=== PATIENT | female | born 1995 | race Hispanic/Latino ===

== ENCOUNTER 2016-10-28 23:38 | Emergency (ER) | payer MEDICAID, OTHER ==
[2016-10-29 00:02] VITALS: BMI 33.6
[2016-10-29 00:07] VITALS: BP 149/83; PULSE 106; RESP 16; TEMP 98; O2SAT 98
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
--- NOTE | 2016-10-29 08:46 | RAD ---
PROCEDURE: Right Wrist Radiographs. HISTORY: WRIST PAIN COMPARISON: None. FINDINGS: BONES: Normal. No fracture. JOINTS: Normal. No dislocation. SOFT TISSUES: Normal. OTHER FINDINGS: None. IMPRESSION: No evidence of acute fracture or dislocation.
== END 2016-10-29 01:43 | disposition home or self-care (01) ==
LOC: H.ER 23:38
DX: S69.91XA Unspecified injury of right wrist, hand and finger(s), initial encounter (principal); W22.8XXA Striking against or struck by other objects, initial encounter; Y93.89 Activity, other specified; Y92.89 Other specified places as the place of occurrence of the external cause